=== PATIENT | female | born 1990 | race Caucasian/White ===

== ENCOUNTER 2017-12-31 13:31 | Emergency (ER) | payer BC ==
[~2017-12-31] VITALS: Ht 162.6 cm; Wt 58.3 kg
[~2017-12-31 13:31] MED LIST: ALLEGRA30 MG PO; BACTRIM,SEPT1 TABLET PO; CELEXA10 MG PO; CIPRO500 MG PO; FLAGYL500 MG PO; METRONIDAZOLE500 MG PO; NEURONTIN300 MG PO; ORTHO TRI-CYCL1 EACH PO; PERCOCET 5/31 TABLET PO; RANITIDINE HCL75 MG PO; SALT; TRI-SPRINTEC1 EACH PO; TRIANEX17 GM TP
[2017-12-31 14:22] LABS: HEMATOCRIT 36.5 % (36.0-46.0); HEMOGLOBIN 12.6 G/DL (11.9-15.5); MCH 27.2 PG (29.0-34.0); MCHC 34.5 G/DL (30.0-36.0); MCV 78.8 FL (83-99); PLATELET COUNT 247 K/uL (156-360); RBC DIS.WIDTH-CV 12.8 % (11.8-14.6); RBC DIS.WIDTH-SD 36.4 % (39-53); RED BLOOD COUNT 4.63 M/uL (3.80-5.20); WHITE BLOOD COUNT 7.8 K/uL (4.1-10.2)
[2017-12-31 14:33] LABS: CHLORIDE 108 mEq/L (99-109); POTASSIUM 3.7 mEq/L (3.7-5.4); SODIUM 138 mEq/L (136-147)
[2017-12-31 14:35] LABS: GLUCOSE 94 mg/dL (70-99)
[2017-12-31 14:39] LABS: CREATININE 0.8 mg/dL (0.6-1.3); GFR ESTIMATE (CALCULATED) > 59 mL/min/; UREA NITROGEN (BUN) 9 mg/dL (9-23)
[2017-12-31] MEDS ORDERED: ZITHROMAX250 MG PO (16:13)
[2017-12-31 16:45] VITALS: BP 121/76
== END 2017-12-31 16:45 | disposition home or self-care (01) ==
LOC: EME 13:31
PROVIDERS: Emergency Medicine
DX: J20.8 Acute bronchitis due to other specified organisms (principal); J45.909 Unspecified asthma, uncomplicated; Q27.8 Other specified congenital malformations of peripheral vascular system; F32.9 Major depressive disorder, single episode, unspecified; Z88.5 Allergy status to narcotic agent; Z88.8 Allergy status to other drugs, medicaments and biological substances; Z90.49 Acquired absence of other specified parts of digestive tract
CPT/HCPCS: 71046; 80048; 85027; 99281; 99285

== ENCOUNTER 2018-01-07 03:51 | Emergency (ER) | payer BC ==
[~2018-01-07] VITALS: Ht 172.7 cm; Wt 72.0 kg
[~2018-01-07 03:51] MED LIST changes: +ZITHROMAX250 MG PO
[2018-01-07 04:31] LABS: CHLORIDE 108 mEq/L (99-109); POTASSIUM 3.3 mEq/L (3.7-5.4); SODIUM 139 mEq/L (136-147)
[2018-01-07 04:32] LABS: GLUCOSE 128 mg/dL (70-99)
[2018-01-07 04:34] LABS: HEMATOCRIT 34.3 % (36.0-46.0); HEMOGLOBIN 11.8 G/DL (11.9-15.5); MCH 26.8 PG (29.0-34.0); MCHC 34.4 G/DL (30.0-36.0); PLATELET COUNT 245 K/uL (156-360); RBC DIS.WIDTH-CV 12.5 % (11.8-14.6); RBC DIS.WIDTH-SD 35.8 % (39-53); WHITE BLOOD COUNT 5.9 K/uL (4.1-10.2)
[2018-01-07 04:36] LABS: CREATININE 0.8 mg/dL (0.6-1.3); GFR ESTIMATE (CALCULATED) > 59 mL/min/; SERUM ETHYL ALCOHOL 105 mg/dL
[2018-01-07 04:37] LABS: UREA NITROGEN (BUN) 7 mg/dL (9-23)
[2018-01-07 04:45] LABS: QUANTITATIVE HCG < 4.0 MIU/ML
[2018-01-07] MEDS ORDERED: ZOFRAN4 MG PO (05:59)
[2018-01-07 06:32] VITALS: BP 101/50
== END 2018-01-07 06:32 | disposition home or self-care (01) ==
LOC: EME → EDBD 03:51 → EME 03:51
PROVIDERS: Emergency Medicine
DX: R11.2 Nausea with vomiting, unspecified (principal); F10.129 Alcohol abuse with intoxication, unspecified; Y90.5 Blood alcohol level of 100-119 mg/100 ml
CPT/HCPCS: 80048; 84702; 85027; 99281; 99284; G0480; J2405; J7030